=== PATIENT | female | born 1950 | race Caucasian/White ===

== ENCOUNTER → 2016-07-04 | Outpatient (CLI) | payer BC | LOC: MC.RAD 14:51 | DX: Z12.31 Encounter for screening mammogram for malignant neoplasm of breast (principal) ==

== ENCOUNTER → 2016-08-04 | Outpatient (CLI) | payer BC | LOC: COL.VAS 10:15 | DX: I08.0 Rheumatic disorders of both mitral and aortic valves (principal); I27.0 Primary pulmonary hypertension ==

== ENCOUNTER → 2017-07-10 | Outpatient (CLI) | payer BC | LOC: MC.RAD 12:40 | DX: Z12.31 Encounter for screening mammogram for malignant neoplasm of breast (principal) ==

== ENCOUNTER → 2018-06-23 | Outpatient (CLI) | payer MEDICARE, BC | LOC: COL.VAS 10:37 | DX: I34.0 Nonrheumatic mitral (valve) insufficiency (principal); I35.0 Nonrheumatic aortic (valve) stenosis ==

== ENCOUNTER → 2018-08-03 | Outpatient (CLI) | payer MEDICARE, BC | LOC: MC.RAD 07:07 | DX: Z12.31 Encounter for screening mammogram for malignant neoplasm of breast (principal) ==

== ENCOUNTER → 2019-10-03 | Outpatient (CLI) | payer MEDICARE, BC | LOC: MC.RAD 13:53 | DX: Z12.31 Encounter for screening mammogram for malignant neoplasm of breast (principal) ==

== ENCOUNTER → 2020-10-04 | Outpatient (CLI) | payer MEDICARE, BC | LOC: MC.RAD 07:37 | DX: Z12.31 Encounter for screening mammogram for malignant neoplasm of breast (principal) ==

== ENCOUNTER → 2021-10-07 | Outpatient (CLI) | payer MEDICARE, BC | LOC: MC.RAD 06:52 | DX: Z12.31 Encounter for screening mammogram for malignant neoplasm of breast (principal) ==